=== PATIENT | male | born 1935 | race Caucasian/White ===

== ENCOUNTER 2024-09-25 20:05 | Emergency (ER) | payer MEDICARE ==
[~2024-09-25] VITALS: Ht 175.3 cm; Wt 79.4 kg
[2024-09-25 20:49] VITALS: BP 121/63; TEMP 97.8; O2SAT 98
== END 2024-09-25 22:28 ==
LOC: ER 20:10
DX: S00.03XA Contusion of scalp, initial encounter (principal); I10 Essential (primary) hypertension; W01.0XXA Fall on same level from slipping, tripping and stumbling without subsequent striking against object, initial encounter; Y93.89 Activity, other specified; Y92.89 Other specified places as the place of occurrence of the external cause; Y99.8 Other external cause status
CPT/HCPCS: 70450-TC